=== PATIENT | female | born 1940 | race Caucasian/White ===

== ENCOUNTER 2017-04-08 09:55 | Outpatient (CLI) ==
[2017-04-08 10:28] LABS: BILIRUBIN,URINE Negative (NEGATIVE); KETONES,URINE Negative (NEGATIVE); LEUKOCYTE ESTERASE ,URINE 2+ (NEGATIVE); NITRITE,URINE Negative (NEGATIVE); PH,URINE 5.5 (5-9); PROTEIN,URINE Negative (NEGATIVE); URINE, BLOOD Negative (NEGATIVE)
[2017-04-08 10:29] LABS: BASOPHILS % (AUTO) 0.6 % (0.0-3.0); EOSINOPHILS # (AUTO) 0.1 K/ul (0.0-0.7); EOSINOPHILS % (AUTO) 1.9 % (0.0-7.0); HEMATOCRIT 41.5 % (37.0-47.0); HEMOGLOBIN 13.8 g/dl (12.0-16.0); IMMATURE GRANULOCYTE % (AUTO) 0.3 % (0.0-5.0); LYMPHOCYTES # (AUTO) 2.3 K/uL (0.60-3.4); LYMPHOCYTES % (AUTO) 36.9 (10.0-50.0); MEAN CORPUSCULAR HEMOGLOBIN 29.2 pg (27.0-31.0); MEAN CORPUSCULAR HGB CONC 33.3 (31.8-35.4); MEAN CORPUSCULAR VOLUME 87.9 fl (81.0-99.0); MONOCYTES # (AUTO) 0.5 K/uL (0.4-2.0); MONOCYTES % (AUTO) 7.6 (0-10); NEUTROPHILS # (AUTO) 3.3 K/ul (2.0-6.9); NEUTROPHILS % (AUTO) 52.7; PLATELET COUNT 150 10^3/uL (140-440); RED BLOOD COUNT 4.72 10^6/ul (4.20-5.40)
[2017-04-08 10:31] LABS: ADD URINE MICROSCOPIC YES
[2017-04-08 10:32] LABS: BACTERIA,URINE 1+ (NOT PRESENT)
[2017-04-08 10:45] LABS: ALBUMIN 3.5 g/dL (3.4-5.0); ALBUMIN/GLOBULIN RATIO 0.97; ANION GAP 11.8; BILIRUBIN,TOTAL 0.63 mg/dL (0.00-1.20); BUN/CREATININE RATIO 21.62; CHOL/HDL RATIO 3.4 (4.5-5.5); CREATININE 0.74 mg/dL (0.60-1.30); POTASSIUM 3.8 mmol/L (3.5-5.10); TOTAL PROTEIN 7.1 g/dL (5.8-8.1)
== END 2017-04-08 09:56 | disposition home or self-care (01) ==
LOC: LAB 09:55
PROVIDERS: ATTEND General Practice
DX: I10 Essential (primary) hypertension (principal); Z79.899 Other long term (current) drug therapy
CPT/HCPCS: 36415; 80053; 80061; 81001; 85025; 87086

== ENCOUNTER 2018-01-12 09:23 | Outpatient (CLI) | END 2018-01-12 09:24 | disposition home or self-care (01) | LOC: FCC-LAB 09:23 | PROVIDERS: ATTEND General Practice | DX: I10 Essential (primary) hypertension (principal); Z79.899 Other long term (current) drug therapy ==

== ENCOUNTER 2018-02-10 10:16 | Outpatient (CLI) | END 2018-02-10 10:17 | disposition home or self-care (01) | LOC: LAB 10:16 | PROVIDERS: ATTEND General Practice | DX: I10 Essential (primary) hypertension (principal); Z79.899 Other long term (current) drug therapy | CPT/HCPCS: 36415; 80053; 80061; 81001; 85025 ==

== ENCOUNTER 2018-08-31 06:09 | Outpatient (CLI) | END 2018-08-31 06:10 | disposition home or self-care (01) | LOC: LAB 06:09 | PROVIDERS: ATTEND General Practice | DX: I10 Essential (primary) hypertension (principal); Z79.899 Other long term (current) drug therapy | CPT/HCPCS: 36415; 80053; 80061; 81001; 85025 ==

== ENCOUNTER 2019-01-19 06:28 | Outpatient (CLI) | END 2019-01-19 06:29 | disposition home or self-care (01) | LOC: LAB 06:28 | PROVIDERS: ATTEND General Practice | DX: I10 Essential (primary) hypertension (principal); Z79.899 Other long term (current) drug therapy | CPT/HCPCS: 36415; 80053; 80061; 81001; 85025; 87086 ==

== ENCOUNTER 2019-03-29 15:59 | Outpatient (CLI) | END 2019-03-29 16:00 | disposition home or self-care (01) | LOC: RHC-LAB 15:59 | PROVIDERS: ATTEND General Practice | DX: L08.9 Local infection of the skin and subcutaneous tissue, unspecified (principal) | CPT/HCPCS: 87070; 87186 ==